=== PATIENT | female | born 1985 | race African-American/Black ===

== ENCOUNTER 2020-05-08 05:40 | Day surgery (SDC) | payer MEDICAID, SELFPAY ==
[2020-05-02 13:11] LABS: BASOPHILS % (AUTO) 0.9 % (0.0-2.0); EOSINOPHILS # (AUTO) 0.1 K/uL (0-0.4); EOSINOPHILS % (AUTO) 1.4 % (0.0-4.0); HEMATOCRIT 37.4 % (36-48); LYMPHOCYTES % (AUTO) 20.3 % (20.5-51.1); MEAN CORPUSCULAR HEMOGLOBIN 27 pg (27-31); MEAN CORPUSCULAR HGB CONC 32 g/dL (33-37); MONOCYTES # (AUTO) 0.6 K/uL (0.8-1.0); MONOCYTES % (AUTO) 11.3 % (1.7-9.3); NEUTROPHILS # (AUTO) 3.2 K/uL (1.8-7.7); NEUTROPHILS % (AUTO) 66.1 % (42.2-75.2); PLATELET COUNT (AUTO) 268 K/uL (140-450); RED BLOOD CELL COUNT(AUTO) 4.45 MIL/uL (4.20-5.40); RED CELL DISTRIBUTION WIDTH 15.6 % (11.6-13.7); WHITE BLOOD COUNT (AUTO) 4.9 K/uL (4.8-10.8)
[2020-05-02 13:32] LABS: ALBUMIN 3.7 g/dL (3.4-5.0); ANION GAP 11.8 (8-16); CARBON DIOXIDE 28.8 mmol/L (21-32); CREATININE 0.8 mg/dL (0.6-1.3); POTASSIUM 4.6 mmol/L (3.5-5.1); TOTAL BILIRUBIN 0.5 mg/dL (0.0-1.0)
[~2020-05-08] VITALS: Ht 157.5 cm; Wt 52.6 kg
[2020-05-08] MEDS ORDERED: BUPIVACAINE-MPF 0.25% 30 ML VIAL INJ ONE (08:50)
[2020-05-08] MEDS ORDERED: HYDROmorphone PFS 2 MG/ML SYR ONE ×2 (09:01→09:04)
[2020-05-08] MEDS ORDERED: fentaNYL 0.05 MG/ML VIAL ONE (09:01)
[2020-05-08] MEDS ORDERED: SUCCINYLCHOLINE CHLORIDE 200 MG/10 ML VIAL IVP ONE (09:04)
[2020-05-08] MEDS ORDERED: ROCURONIUM 50 MG/5 ML VIAL IV ONE (09:04)
[2020-05-08] MEDS ORDERED: DEXAMETHASONE 4 MG/ML VIAL ONE (09:04)
[2020-05-08] MEDS ORDERED: DESFLURANE 240 ML BTL INH ONE (09:04)
[2020-05-08] MEDS ORDERED: PROPOFOL 200 MG/20 ML VIAL IV ONE (09:04)
[2020-05-08] MEDS ORDERED: KETOROLAC 30 MG/ML VIAL ONE (09:04)
[2020-05-08] MEDS ORDERED: ONDANSETRON 4 MG/2 ML VIAL ONE (09:04)
[2020-05-08] MEDS ORDERED: ONDANSETRON 4 MG/2 ML VIAL IVP PRN (09:20)
[2020-05-08] MEDS ORDERED: HYDROmorphone 1 MG/ML AMP IVP PRN (09:20)
== END 2020-05-08 12:15 | disposition home or self-care (01) ==
LOC: MDS 05:40 → MMU 05:53 → MDS 12:15
PROVIDERS: ATTEND Obstetrics & Gynecology
DX: N83.202 Unspecified ovarian cyst, left side (principal); N73.6 Female pelvic peritoneal adhesions (postinfective); Z72.89 Other problems related to lifestyle; Z83.3 Family history of diabetes mellitus; Z80.3 Family history of malignant neoplasm of breast
CPT/HCPCS: 36415; 58660; 80053; 84703; 85025; J0330; J1100; J1170; J1885; J2405; J2704; J3010; J3490; J7120; U0003-CS